=== PATIENT | male | born 1990 | race Caucasian/White ===

== ENCOUNTER 2022-06-19 14:03 | Emergency (ER) | payer MEDICARE, OTHER ==
[~2022-06-19] VITALS: Ht 188 cm; Wt 108.9 kg
[2022-06-19 15:53] LABS: Base Excess Venous 0.7 mmol/L; Bicarbonate Venous 24.1 mmol/L (24.0-30.0); PCO2 Venous 47.8 mmHg (38-42); pH Blood Venous 7.35 (7.34-7.37)
[2022-06-19 15:54] LABS: BASOPHILS ABSOLUTE AUTO 0.04 K/mm3 (0.00-0.23); BASOPHILS PERCENT AUTO 1 % (0-2); EOSINOPHILS ABSOLUTE AUTO 0.14 K/mm3 (0.00-0.68); EOSINOPHILS PERCENT AUTO 2 % (0-6); Hematocrit 41.4 % (37.0-53.0); Hemoglobin 14.8 g/dL (13.5-17.5); IMMATURE GRAN ABSOLUTE AUTO 0.03 K/mm3 (0.00-0.10); IMMATURE GRAN PERCENT AUTO 1 % (0-1); LYMPHOCYTES ABSOLUTE AUTO 1.61 K/mm3 (0.84-5.20); LYMPHOCYTES PERCENT AUTO 27 % (21-46); MONOCYTES PERCENT AUTO 5 % (4-13); Mean Corpuscular HGB 28.6 pg (26.0-34.0); Mean Corpuscular HGB Conc 35.7 g/dL (31.5-36.5); Mean Corpuscular Volume 80 fL (80-100); Mean Platelet Volume 9.3 fL (9.1-12.4); NEUTROPHILS ABSOLUTE AUTO 3.92 K/mm3 (1.96-9.15); NEUTROPHILS PERCENT AUTO 65 % (41-73); Platelet Count 179 K/mm3 (150-400); RDW Coefficient Variation 12.8 % (11.7-14.2); Red Blood Cell Count 5.18 M/mm3 (4.30-5.90); White Blood Cell Count 6.04 K/mm3 (4.00-11.30)
[2022-06-19 16:19] LABS: Albumin/Globulin Ratio 1.2 (0.8-1.8); Bilirubin, Total 0.5 mg/dL (0.1-1.0); Bun/Creatinine Ratio 24.8 (12.0-20.0); Calcium, Blood 9.4 mg/dL (8.5-10.1); Creatinine, Blood 0.56 mg/dL (0.60-1.20); Globulin, Blood 3.4 g/dL (2.2-4.0); Potassium, Blood 4.3 mmol/L (3.5-5.5); Total Protein, Blood 7.4 g/dL (6.4-8.2)
[2022-06-19 17:00] VITALS: BP 124/78
== END 2022-06-19 17:13 | disposition home or self-care (01) ==
LOC: ER 14:03
PROVIDERS: Physician Assistant
DX: E11.65 Type 2 diabetes mellitus with hyperglycemia (principal)
CPT/HCPCS: 36415; 80053; 82803; 85025; 99283

== ENCOUNTER → 2022-07-15 | Outpatient (CLI) | payer MEDICARE, OTHER | LOC: PLD 07:53 → LAB SHORT 07:53 | DX: L92.8 Other granulomatous disorders of the skin and subcutaneous tissue (principal) | CPT/HCPCS: 88305 ==

== ENCOUNTER 2024-03-27 18:39 | Emergency (ER) | payer MEDICARE, OTHER ==
[~2024-03-27] VITALS: Ht 188 cm; Wt 113.4 kg
[2024-03-27 19:32] VITALS: BP 169/121
[2024-03-27] MEDS ORDERED: Ketorolac Tromethamine 30mg Vial IV ONE (20:45)
[2024-03-27] MEDS ORDERED: Prochlorperazine Edisylate 10 mg Vial IV ONE (20:45)
[2024-03-27] MEDS ORDERED: NS 1,000 ML IV SCH (20:45)
[2024-03-27] MEDS ORDERED: DiphenhydrAMINE HCl 50 MG/ML 1ML Vial IV ONE (20:45)
== END 2024-03-27 21:39 | disposition home or self-care (01) ==
LOC: ER 18:39
DX: G44.209 Tension-type headache, unspecified, not intractable (principal)
CPT/HCPCS: 96374; 96375; 99283-25; J0780; J1200; J1885; J7030

== ENCOUNTER 2024-10-10 19:48 | Emergency (ER) | payer OTHER, MEDICARE ==
[~2024-10-10] VITALS: Ht 188 cm; Wt 106.6 kg
[2024-10-10 19:53] VITALS: BP 103/76
[2024-10-10] MEDS ORDERED: Ketorolac Tromethamine 15mg Vial IM ONE (22:00)
[2024-10-10] MEDS ORDERED: AMOCLA875 PO (22:01)
[2024-10-10] MEDS ORDERED: Lidocaine 4% 1 Patch TOP ONE (22:25)
[2024-10-10] MEDS ORDERED: Dexamethasone Sod Phos 10 MG/ML 1ML VIAL PO ONE (22:25)
== END 2024-10-10 22:43 | disposition home or self-care (01) ==
LOC: ER 19:48
DX: M54.17 Radiculopathy, lumbosacral region (principal); S61.251A Open bite of left index finger without damage to nail, initial encounter; E11.9 Type 2 diabetes mellitus without complications; Z91.030 Bee allergy status; W54.0XXA Bitten by dog, initial encounter
CPT/HCPCS: 96372; 99282-25; A9270; J1100; J1885